=== PATIENT | male | born 1965 | race Caucasian/White ===

== ENCOUNTER 2017-02-17 20:58 | Emergency (ER) | payer OTHER ==
[~2017-02-17] VITALS: Ht 180.3 cm; Wt 117.6 kg
[~2017-02-17 20:58] MED LIST: INVOKANA300 MG PO; JANUVIA100 MG PO; METFORMIN HCL500 MG PO; NORCO 5/3251 TABLET PO; STOOL SOFTENER100 M1 PO
[2017-02-18 01:09] VITALS: BP 132/99
== END 2017-02-18 01:20 | disposition home or self-care (01) ==
LOC: EME → EDBD 20:58 → EME 20:58
PROC: 0HQ0XZZ Repair Scalp Skin, External Approach (ICD-10-PCS; principal; 2017-02-17)
DX: S06.0X0A Concussion without loss of consciousness, initial encounter (principal); S01.81XA Laceration without foreign body of other part of head, initial encounter; W18.30XA Fall on same level, unspecified, initial encounter; Y92.39 Other specified sports and athletic area as the place of occurrence of the external cause; E11.9 Type 2 diabetes mellitus without complications; Z79.84 Long term (current) use of oral hypoglycemic drugs; Z87.891 Personal history of nicotine dependence
CPT/HCPCS: 70450; 72125; 99281; 99285